=== PATIENT | male | born 1955 | race Caucasian/White ===

== ENCOUNTER → 2023-12-17 08:57 | Outpatient (REF) | payer OTHER, SELFPAY | LOC: RCS 08:57 | PROVIDERS: ATTENDING PHYSICIAN Internal Medicine Cardiovascular Disease | DX: I10 Essential (primary) hypertension (principal) | CPT/HCPCS: 93306 ==

== ENCOUNTER 2024-07-02 20:18 | Emergency (ER) | payer OTHER, SELFPAY ==
[2024-07-02 20:21] VITALS: BP 138/81
[2024-07-02 21:02] LABS: COVID-19 Antigen Positive (Negative)
--- NOTE | 2024-07-02 21:18 | ED.GENMED ---
History of Present Illness
General
Chief Complaint: Breathing Problem
Time Seen by Provider: 07/02/24 21:06
History of Present Illness
History of Present Illness:
Patient is a 69-year-old man with history of CAD with bypass, hypertension, hyperlipidemia presenting to the emergency department cough congestion for the past 2 days. No fevers or chills. No chest pain. No shortness of breath. No sick contacts.
Last time this occurred he did have walking pneumonia. No nausea vomiting diarrhea. No abdominal pain. He has been taking Tylenol Advil Mucinex and Sudafed at home with some relief. He has had COVID in the past. Has not had any booster since
the initial vaccine.
Past History
Past History
ED Past Medical History: CAD, HTN and Hypercholesterolemia
ED Past Surgical History: Cardiac
Social History
Tobacco: Non-smoker
Alcohol: None
Phy Exam
Physical Exam
Physical Exam:
GENERAL: in no acute distress
HEENT: normocephalic, extraocular movements intact, moist oral mucosa, congested
NECK: normal inspection
RESPIRATORY: no respiratory distress, clear to auscultation bilaterally
CARDIOVASCULAR: regular rate and rhythm
ABDOMEN/: soft, non-distended, non-tender to palpation, no rebound or guarding
EXTREMITIES: non-tender, no edema/swelling
NEUROLOGIC: awake and alert, moves all extremities
SKIN: warm
Scores
Heart Failure Risk
Heart Failure Risk Score: Not Applicable
Course
Orders/Labs/Results
Orders:
Orders
07/02/24 20:27
COVID-19 Antigen Urgent
Source: Nasal Swab
Influenza A+B Rapid Molecular Urgent
NATACHA Source: Nasal Swab
Specimen Description:
Chest [CR Chest - 2 Views ] Urgent
Comment:
Reason For Exam: cough
Abnormal Lab Results
07/02/24
20:27
SARS-CoV-2 Antigen Positive A
(Negative)
Vital Signs
Initial and Last Documented VS:
Initial Vital Signs
Temp Pulse Resp BP Pulse Ox
98.2 F 92 18 138/81 97
07/02/24 20:21 07/02/24 20:21 07/02/24 20:21 07/02/24 20:21 07/02/24 20:21
Last Documented Vital Signs
Temp Pulse Resp BP Pulse Ox
98.2 F 92 18 138/81 97
07/02/24 20:21 07/02/24 20:21 07/02/24 20:21 07/02/24 20:21 07/02/24 20:21
MDM/Problems Addressed
Differential Diagnosis Includes:
Patient is a 69-year-old male with history of CAD with bypass presenting to the emergency department 2 days of cough congestion. On arrival here patient is afebrile. His heart rate is normal. On exam his lungs are clear bilaterally. Likely upper
respiratory infection COVID flu. Could be pneumonia. Given that he has no chest pain or shortness of breath less likely to be atypical ACS or PE. Chest x-ray per my interpretation with no acute abnormality. He is positive for COVID. Will obtain
ambulatory pulse ox.
*Critical Care Note
Total Time (30-74mins, 75-104mins- exclusive of procedures): Not Applicable
Update Note
Update Note:
Ambulatory pulse ox unremarkable. Will discharge patient home. Strict return precautions given.
ED Attending Note
-
Portions of this chart may have been created with voice recognition software.� Occasional wrong word or��sound alike� substitutions may have occurred due to the inherent limitations of voice recognition software.
Discharge Plan
Departure
Patient Disposition: Home (Routine Discharge)
Date of Disposition: 07/02/24
Time of Disposition: 21:45
Patient with high blood pressure during this ER visit?: No
Discharge Problem:
COVID-19
Instructions: COVID-19 - ED discharge instructions
Prescriptions:
No Action
atorvastatin 80 mg Tablet
80 mg PO DAILY Qty: 90 3RF
amlodipine 5 mg Tablet
5 mg PO DAILY Qty: 90 3RF
valsartan-hydrochlorothiazide 320-25 mg Tablet
1 tab PO DAILY Qty: 90 3RF
Activity Restrictions/Additional Instructions:
You were seen in the Emergency Department today for cough and congestion. You are found to have COVID.
We would like for you to follow up with your primary care physician for further evaluation. If you experience fever, worsening of your symptoms, or develop any other new or concerning symptoms, please return to the Emergency Department immediately.
Please see the attached sheet for additional information.
Interventions
Interventions:
*Risk Screen - Suicide Last Done: 07/02/24 21:10
*General Assessment Last Done: 07/02/24 20:21
*Neglect/Abuse Screening Last Done: 07/02/24 20:21
ED- Fall Risk Assessment Last Done: 07/02/24 21:41
*ED COVID-19 Vaccine History Last Done: 07/02/24 20:21
ED- Cardiac Assessment Last Done: 07/02/24 21:41
ED- Pulmonary Assessment Last Done: 07/02/24 21:41
Discharge Date and Time
Print Language: [id number]
== END 2024-07-02 22:25 | disposition home or self-care (01) ==
LOC: EMR 20:18
PROVIDERS: Emergency Medicine; EMERGENCY PHYSICIAN Student in an Organized Health Care Education/Training Program
DX: U07.1 COVID-19 (principal); I25.10 Atherosclerotic heart disease of native coronary artery without angina pectoris; I10 Essential (primary) hypertension; E78.00 Pure hypercholesterolemia, unspecified
CPT/HCPCS: 99283; 71046; 87502; 87811